=== PATIENT | female | born 1940 | race African-American/Black ===

== ENCOUNTER 2016-04-02 20:35 | Emergency (ER) | payer MEDICARE ==
[~2016-04-02] VITALS: Ht 170.2 cm; Wt 95.3 kg
[2016-04-02 23:01] VITALS: BP 140/87
== END 2016-04-02 23:02 | disposition home or self-care (01) ==
LOC: ER 20:37
DX: M25.512 Pain in left shoulder (principal); M79.672 Pain in left foot; I10 Essential (primary) hypertension; K21.9 Gastro-esophageal reflux disease without esophagitis; Z88.8 Allergy status to other drugs, medicaments and biological substances; Z88.0 Allergy status to penicillin; Z88.6 Allergy status to analgesic agent; Z88.1 Allergy status to other antibiotic agents; W17.89XA Other fall from one level to another, initial encounter; Y93.89 Activity, other specified; Y92.89 Other specified places as the place of occurrence of the external cause; Y99.8 Other external cause status
CPT/HCPCS: 73630-TC; A4606; Z7610

== ENCOUNTER 2017-09-29 01:11 | Emergency (ER) | payer MEDICARE, MEDICAID ==
[~2017-09-29] VITALS: Ht 172.7 cm; Wt 123.4 kg
--- NOTE | 2017-09-29 01:11 | NUR ---
BB DAUGHTER; "LIGHT HEADED/ DIZZY ALL DAY, THINKS ITS FROM THE LEVAQUIN JACINTO BEEN TAKING FOR BLADDER INFECTION" PT IS HYPERTENSIVE BUT OTHERWISE VSS NO ACUTE DISTRESS AT THIS TIME. BREATHING PATTERN WNL WITH ADEQUATE CHEST RISE AND FALL. WILL CONTINUE TO MONITOR FOR ANY CHANGES DURING THE SHIFT.
--- NOTE | 2017-09-29 01:12 | NUR ---
ER MD BOWLES AT BEDSIDE FOR EVAL
[2017-09-29] MEDS ORDERED: NITROFURANTOIN/NITROFURAN MAC 100 MG CAPSULE ONE (02:09)
[2017-09-29 02:10] LABS: APPEARANCE,URINE CLEAR (CLEAR); BILIRUBIN,URINE NEGATIVE (NEGATIVE); BLOOD, URINE NEGATIVE Ery/uL (NEGATIVE); COLOR,URINE YELLOW (YELLOW); KETONES,URINE NEGATIVE (NEGATIVE); LEUKOCYTE ESTERASE ,URINE 1+ (NEGATIVE); NITRITE, URINE NEGATIVE (NEGATIVE); PROTEIN,URINE NEGATIVE (NEGATIVE); UGLUCOSE NEGATIVE (NEGATIVE); UROBILINOGEN,URINE 0.2 EU/dL (0.2)
[2017-09-29 02:14] LABS: RBC,URINE 0-2 /HPF (0-2)
[2017-09-29 02:15] LABS: BACTERIA,URINE Few /HPF (None Seen); SQUAMOUS EPITHELIAL CELL,UR Few /HPF (None Seen)
[2017-09-29] MEDS ORDERED: NITROFURANTOIN/NITROFURAN MAC 100 MG CAPSULE PO ONE (02:30)
[2017-09-29 02:35] VITALS: BP 165/49
== END 2017-09-29 02:36 | disposition home or self-care (01) ==
LOC: ER 01:11
DX: N39.0 Urinary tract infection, site not specified (principal); R42 Dizziness and giddiness; I10 Essential (primary) hypertension; I49.9 Cardiac arrhythmia, unspecified; K21.9 Gastro-esophageal reflux disease without esophagitis; Z90.710 Acquired absence of both cervix and uterus; Z90.89 Acquired absence of other organs; Z88.2 Allergy status to sulfonamides; Z88.8 Allergy status to other drugs, medicaments and biological substances; Z88.6 Allergy status to analgesic agent; Z88.0 Allergy status to penicillin
CPT/HCPCS: 81001; 87086; 99284; A4606; 81000-TC; Z7610

== ENCOUNTER 2018-12-02 01:02 | Emergency (ER) | payer MEDICARE, MEDICAID ==
[~2018-12-02] VITALS: Ht 265.4 cm; Wt 106.6 kg
--- NOTE | 2018-12-02 01:20 | NUR ---
PT ANNE FROM HOME S/O UNWITNESSED SYNCOPE. PT STATES "I DIDN'T KNOW I PASSED OUT UNTIL I WOKE UP ON THE FLOOR WITH THE CHAIR BROKEN NEXT TO ME". PT ALSO C/O BACK PAIN. PT AAOX4. RESPIRATIONS EVEN AND UNLABORED. SKIN INTACT. NO ACUTE DISTRESS NOTED AT THIS TIME. PLACED ON MONITOR, WILL CONTINUE TO MONITOR
[2018-12-02] MEDS ORDERED: IV NS 0.9% 500 ML BAG IV ONE (01:30)
[2018-12-02] MEDS ORDERED: HYDROCODONE/APAP 5/325MG 1 EACH TABLET ONE ×2 (01:36→08:13)
[2018-12-02 01:38] LABS: BASOPHILS # (AUTO) 0.1 /CMM (0.0-0.2); BASOPHILS % (AUTO) 1.5 % (0.0-2.0); EOSINOPHILS % (AUTO) 0.4 % (0.0-6.0); HEMATOCRIT 42 % (33-45); HEMOGLOBIN 14.2 g/dL (11.5-14.8); LYMPHOCYTES # (AUTO) 1.1 /CMM (0.8-4.8); MEAN CORPUSCULAR HGB CONC 34 g/dl (31.0-36.0); MEAN CORPUSCULAR VOLUME 97 fL (82-100); MONOCYTES # (AUTO) 0.4 /CMM (0.1-1.30); MONOCYTES % (AUTO) 5.6 % (2.0-12.0); NEUTROPHILS # (AUTO) 4.7 /CMM (1.8-8.9); NEUTROPHILS % (AUTO) 74.5 % (43.0-81.0); PLATELET COUNT (AUTO) 157 /CMM (150-450); RED BLOOD CELL COUNT(AUTO) 4.39 MIL/uL (4.0-5.2); WHITE BLOOD COUNT (AUTO) 6.4 K/uL (4.3-11.0)
[2018-12-02 01:51] LABS: CALCIUM, SERUM 9.5 mg/dL (8.5-10.1); CARBON DIOXIDE 27 mmol/L (21-32); CHLORIDE 105 mmol/L (98-107); CREATININE 1.6 mg/dL (0.6-1.3); GLUCOSE 129 mg/dL (74-106); POTASSIUM 3.7 mmol/L (3.5-5.1); SODIUM SERUM 140 mmol/L (136-145); UREA NITROGEN, BLOOD 18 mg/dL (7-18)
[2018-12-02 01:56] LABS: ALANINE AMINOTRANSFERASE 42 U/L (12-78); ALBUMIN 3.8 g/dL (3.4-5.0); ALKALINE PHOSPHATASE 55 U/L (46-116); ASPARTATE AMINOTRANSFERASE 31 U/L (15-37); BILIRUBIN,DIRECT 0.1 mg/dL (0.0-0.2); BILIRUBIN,TOTAL 0.4 mg/dL (0.2-1.0); TOTAL PROTEIN, SERUM 7.6 g/dL (6.4-8.2)
--- NOTE | 2018-12-02 01:58 | NUR ---
PT RETURNED FROM [place]
[2018-12-02] MEDS ORDERED: HYDROCODONE/APAP 5/325MG 1 EACH TABLET PO ONE ×2 (02:00→08:30)
--- NOTE | 2018-12-02 04:40 | NUR ---
JULIA (DAUGHTER) CONTACT INFORMATION:
--- NOTE | 2018-12-02 06:54 | NUR ---
PT ACCEPTED TO [facility] BY DR WOODARD. ROOM 509. # FOR REPORT [phone]. PENDING TRANSPORT ETA.
--- NOTE | 2018-12-02 07:02 | NUR ---
ATTEMPTED TO GIVE REPORT TO RUPERTO PRAKASH, UNABLE TO AT THIS TIME. WILL CALL BACK LATER
--- NOTE | 2018-12-02 07:20 | NUR ---
ATTEMPTED TO GIVE REPORT TO RUPERTO ANGULO. ASKED TO CALL BACK LATER
--- NOTE | 2018-12-02 08:08 | NUR ---
REPORT GIVEN TO RESEARCH CHEF. PATIENT IN STABLE CONDITION. VITALS STABLE. NO DISTRESS NOTED AT THIS TIME.
[2018-12-02] MEDS ORDERED: ONDANSETRON 4 MG TAB.RAPDIS ONE (08:13)
[2018-12-02 08:24] VITALS: BP 134/31
[2018-12-02] MEDS ORDERED: ONDANSETRON 4 MG TAB.RAPDIS SL ONE (08:30)
== END 2018-12-02 08:40 | disposition short-term general hospital (02) ==
LOC: ER 01:03
DX: R55 Syncope and collapse (principal); I10 Essential (primary) hypertension; K21.9 Gastro-esophageal reflux disease without esophagitis; I49.9 Cardiac arrhythmia, unspecified; I45.10 Unspecified right bundle-branch block; I51.7 Cardiomegaly; Z90.710 Acquired absence of both cervix and uterus; Z98.890 Other specified postprocedural states; Z88.8 Allergy status to other drugs, medicaments and biological substances; Z88.6 Allergy status to analgesic agent; Z88.0 Allergy status to penicillin
CPT/HCPCS: 36415; 70450; 71045; 80048; 80076; 84484; 85025; 85730; 93005; 99285; J7040; Q0162